=== PATIENT | female | born 1955 | race Caucasian/White ===

== ENCOUNTER 2017-04-18 12:52 | Emergency (ER) | payer OTHER, BC ==
[~2017-04-18] VITALS: Ht 160 cm; Wt 78.6 kg
[~2017-04-18 12:52] MED LIST: BUTALB-APAP-CA1 EACH PO; CLONAZEPAM0.5 MG PO; FENOFIBRATE160 M1 PO; FLUCONAZOLE150 MG PO; HYDROCODON-ACE1 EAC7 PO; LAMICTAL25 MG PO; LANSOPRAZOLE30 MG PO; LEVAQUIN500 MG PO; LIVALO4 MG PO; LORAZEPAM1 MG PO; LYRICA75 MG PO; PAXIL40 MG PO; PRAMIPEXOLE D0.25 MG PO; PREDNISONE50 MG PO; PROVENTIL HFA6.7 GM IH; TRAZODONE HCL50 MG PO
[2017-04-18 13:16] LABS: HEMATOCRIT 40.4 % (36.0-46.0); MCH 29.2 PG (29.0-34.0); MCHC 32.2 G/DL (30.0-36.0); MCV 90.8 FL (83-99); MEAN PLAT.VOLUME 9.3 uM^3 (9.5-12.4); PLATELET COUNT 255 K/uL (156-360); RBC DIS.WIDTH-CV 13.2 % (11.8-14.6); RBC DIS.WIDTH-SD 43.8 % (39-53); RED BLOOD COUNT 4.45 M/uL (3.80-5.20); WHITE BLOOD COUNT 15.9 K/uL (4.1-10.2)
[2017-04-18 13:28] LABS: CHLORIDE 103 mEq/L (99-109); SODIUM 137 mEq/L (136-147)
[2017-04-18 13:30] LABS: GLUCOSE 128 mg/dL (70-99)
[2017-04-18 13:31] LABS: ANION GAP 12 MEQ/L (2-14)
[2017-04-18 13:32] LABS: TOTAL BILIRUBIN 0.6 mg/dL (0.0-1.0)
[2017-04-18 13:33] LABS: ALKALINE PHOSPHATASE 64 IU/L (3-129)
[2017-04-18 13:34] LABS: GFR ESTIMATE (CALCULATED) > 59 mL/min/
[2017-04-18 13:35] LABS: UREA NITROGEN (BUN) 11 mg/dL (9-23)
[2017-04-18 14:49] LABS: ADD MIUA? YES; BILIRUBIN NEGATIVE; BLOOD NEGATIVE; COLOR YELLOW ((YELLOW)); GLUCOSE (STRIP) NEGATIVE; KETONES NEGATIVE; LEUKOCYTES NEGATIVE; NITRITE NEGATIVE; PROTEIN (STRIP) NEGATIVE; SPECIFIC GRAVITY 1.008 (1.000-1.030); UROBILINOGEN 0.2 MG/DL (0.2-1.0)
[2017-04-18 14:51] LABS: BACTERIA RARE /HPF; EPITHELIAL CELLS RARE /HPF; MUCUS NONE SEEN /LPF; RED BLOOD CELLS 0-5 /HPF (0-5); UCUL ADDED? NO; WHITE BLOOD CELLS 0-5 /HPF (0-5)
[2017-04-18] MEDS ORDERED: ZOFRAN4 MG PO (16:06)
[2017-04-18] MEDS ORDERED: AVELOX400 MG PO (16:06)
[2017-04-18 16:27] VITALS: BP 102/68
== END 2017-04-18 16:49 | disposition home or self-care (01) ==
LOC: EME 12:52
DX: K57.92 Diverticulitis of intestine, part unspecified, without perforation or abscess without bleeding (principal); E11.9 Type 2 diabetes mellitus without complications; M79.7 Fibromyalgia; Z88.0 Allergy status to penicillin; Z90.49 Acquired absence of other specified parts of digestive tract; Z79.84 Long term (current) use of oral hypoglycemic drugs
CPT/HCPCS: 74177; 80053; 81003; 85027; 99281; 99285; J2270; J2405; J7030